=== PATIENT | female | born 1960 | race Two or more races ===

== ENCOUNTER 2024-07-26 19:23 | Inpatient (IN) | payer MEDICARE ==
[~2024-07-26] VITALS: Ht 160 cm; Wt 68.0 kg
[2024-07-26] MEDS ORDERED: ATOR20TA PO (19:34)
[2024-07-26] MEDS ORDERED: LEVO25TA9 PO (19:34)
[2024-07-26] MEDS ORDERED: ONDANSETRON 4 MG/2 ML VIAL ONE ×2 (19:48→22:23)
[2024-07-26] MEDS ORDERED: MORPHINE SULFATE 2 MG/1 ML DISP.SYRIN ONE (19:48)
[2024-07-26] MEDS: MORPHINE SULFATE 2 MG/1 ML DISP.SYRIN IV ONE (19:54)
[2024-07-26] MEDS: ONDANSETRON 4 MG/2 ML VIAL IV ONE ×2 (19:54→22:29)
[2024-07-26 19:55] LABS: BASOPHILS % (AUTO) 0.4 % (0.0-2.0); EOSINOPHILS # (AUTO) 0.2 K/uL (0.0-0.7); EOSINOPHILS % (AUTO) 1.4 % (0.0-7.0); HEMATOCRIT 39.3 % (31.2-41.9); HEMOGLOBIN 13.3 g/dL (10.9-14.3); LYMPHOCYTES # (AUTO) 6.3 K/uL (0.8-4.8); LYMPHOCYTES % (AUTO) 47.9 % (20.5-51.5); MEAN CORPUSCULAR HEMOGLOBIN 32.4 uug (24.7-32.8); MEAN CORPUSCULAR HGB CONC 34 g/dL (32.3-35.6); MEAN CORPUSCULAR VOLUME 95.3 fL (75.5-95.3); MONOCYTES # (AUTO) 0.7 K/uL (0.1-1.30); MONOCYTES % (AUTO) 5.4 % (0.0-11.0); NEUTROPHILS # (AUTO) 5.9 K/uL (1.8-8.9); NEUTROPHILS % (AUTO) 44.9 % (38.5-71.5); PLATELET COUNT (AUTO) 283 K/uL (179-408); RED BLOOD CELL COUNT(AUTO) 4.12 MIL/uL (3.63-4.92); RED CELL DISTRIBUTION WIDTH 12.8 % (12.3-17.7); WHITE BLOOD COUNT (AUTO) 13.2 K/uL (3.8-11.8)
[2024-07-26 19:56] LABS: DIFFERENTIAL COMMENT 1
[2024-07-26 20:03] LABS: CALCIUM 9.2 mg/dL (8.5-10.1); CREATININE 1.2 mg/dL (0.6-1.3); POTASSIUM 3.7 mmol/L (3.5-5.1)
[2024-07-26 20:08] LABS: ALBUMIN 4.1 g/dL (3.4-5.0); BILIRUBIN,TOTAL 0.5 mg/dL (0.2-1.0); TOTAL PROTEIN, SERUM 7.1 g/dL (6.4-8.2)
[2024-07-26] MEDS ORDERED: HYDROMORPHONE 1 MG/1 ML DISP.SYRIN ONE (22:23)
[2024-07-26] MEDS: HYDROMORPHONE 1 MG/1 ML DISP.SYRIN IV ONE (22:28)
[2024-07-27] MEDS ORDERED: REMEDY ESSENTIAL ZINC PASTE 113 GM TP PRN (00:15)
[2024-07-27 02:05] VITALS: BP 141/79; TEMP 98.3; O2SAT 93
[2024-07-27] MEDS: HYDROMORPHONE 1 MG/1 ML DISP.SYRIN IV PRN (02:13)
[2024-07-27] MEDS: IV NS 1000 ML 1,000 ML IV PRN (02:35)
[2024-07-27 05:30] VITALS: BP 128/70; TEMP 98.5; O2SAT 94
[2024-07-27 07:20] LABS: CALCIUM 8.4 mg/dL (8.5-10.1); PHOSPHOROUS 4.8 mg/dL (2.5-4.9); POTASSIUM 4.3 mmol/L (3.5-5.1)
[2024-07-27 07:22] LABS: BASOPHILS % (AUTO) 0.2 % (0.0-2.0); EOSINOPHILS % (AUTO) 0.3 % (0.0-7.0); HEMATOCRIT 36.4 % (31.2-41.9); HEMOGLOBIN 12.8 g/dL (10.9-14.3); LYMPHOCYTES % (AUTO) 28.2 % (20.5-51.5); MEAN CORPUSCULAR HEMOGLOBIN 33.5 uug (24.7-32.8); MEAN CORPUSCULAR HGB CONC 35 g/dL (32.3-35.6); MEAN CORPUSCULAR VOLUME 95.1 fL (75.5-95.3); MONOCYTES # (AUTO) 0.8 K/uL (0.1-1.30); MONOCYTES % (AUTO) 7.1 % (0.0-11.0); NEUTROPHILS # (AUTO) 6.8 K/uL (1.8-8.9); NEUTROPHILS % (AUTO) 64.2 % (38.5-71.5); PLATELET COUNT (AUTO) 241 K/uL (179-408); RED BLOOD CELL COUNT(AUTO) 3.83 MIL/uL (3.63-4.92); RED CELL DISTRIBUTION WIDTH 12.9 % (12.3-17.7); WHITE BLOOD COUNT (AUTO) 10.6 K/uL (3.8-11.8)
[2024-07-27] MEDS: PANTOPRAZOLE SODIUM 40 MG VIAL IV SCH (08:05)
[2024-07-27] MEDS ORDERED: LEVO75TA7 PO (10:48)
[2024-07-27 11:07] VITALS: BP 114/64; TEMP 98.4; O2SAT 97
[2024-07-27 15:07] VITALS: BP 105/67; TEMP 97.8; O2SAT 94
[2024-07-27] MEDS: ONDANSETRON 4 MG/2 ML VIAL IV PRN (18:27)
[2024-07-27 18:43] LABS: *BILIRUBIN,URIN NEGATIVE (NEGATIVE); *BLOOD, URINE 2+ (NEGATIVE); *CLARITY,URINE CLEAR (CLEAR); *COLOR,URINE YELLOW (YELLOW); *KETONES,URINE 1+ (NEGATIVE); *PROTEIN,URINE TRACE (NEGATIVE); *UROBILINOGEN,URINE 0.2 E.U./dl (NORMAL); LEUKOCYTE ESTERASE ,URINE NEGATIVE (NEGATIVE); NITRITE, URINE NEGATIVE (NEGATIVE); PH,URINE 5.5 (5.0-8.0); UGLUCOSE NEGATIVE (NEGATIVE)
[2024-07-27 18:51] LABS: BACTERIA,URINE FEW /HPF (NONE SEEN); SQUAMOUS EPITHELIAL CELL,UR MODERATE /HPF (NONE SEEN); WBC,URINE 0-3 /HPF (0-3)
[2024-07-27 19:00] VITALS: BP 127/68; TEMP 98.9; O2SAT 95
[2024-07-28 06:37] VITALS: BP 123/65; TEMP 99.1; O2SAT 92
[2024-07-28 06:58] LABS: CALCIUM 8.2 mg/dL (8.5-10.1); CREATININE 0.9 mg/dL (0.6-1.3); MAGNESIUM 1.9 mg/dL (1.8-2.4); PHOSPHOROUS 2.4 mg/dL (2.5-4.9); POTASSIUM 3.9 mmol/L (3.5-5.1)
[2024-07-28 06:59] LABS: BASOPHILS % (AUTO) 0.1 % (0.0-2.0); EOSINOPHILS % (AUTO) 0.2 % (0.0-7.0); HEMATOCRIT 32.7 % (31.2-41.9); HEMOGLOBIN 11.5 g/dL (10.9-14.3); LYMPHOCYTES % (AUTO) 17.8 % (20.5-51.5); MEAN CORPUSCULAR HEMOGLOBIN 33.5 uug (24.7-32.8); MEAN CORPUSCULAR HGB CONC 35 g/dL (32.3-35.6); MEAN CORPUSCULAR VOLUME 95.6 fL (75.5-95.3); MONOCYTES # (AUTO) 0.9 K/uL (0.1-1.30); MONOCYTES % (AUTO) 8.1 % (0.0-11.0); NEUTROPHILS # (AUTO) 8.3 K/uL (1.8-8.9); NEUTROPHILS % (AUTO) 73.8 % (38.5-71.5); PLATELET COUNT (AUTO) 189 K/uL (179-408); RED BLOOD CELL COUNT(AUTO) 3.42 MIL/uL (3.63-4.92); RED CELL DISTRIBUTION WIDTH 13.1 % (12.3-17.7); WHITE BLOOD COUNT (AUTO) 11.3 K/uL (3.8-11.8)
[2024-07-28] MEDS ORDERED: VANCOMYCIN 1000 MG VIAL ONE (07:01)
[2024-07-28] MEDS ORDERED: ROPIVACAINE HCL/PF 0.5% ( 5 MG/ML ) , 20 ML VIAL ONE (07:33)
[2024-07-28] MEDS ORDERED: LIDOCAINE 2% (GLYDO= UROJET) 10 ML JELLY MM ONE (07:33)
[2024-07-28] MEDS ORDERED: MIDAZOLAM HCL 2 MG/2 ML VIAL ONE (07:33)
[2024-07-28] MEDS ORDERED: FENTANYL CITRATE 100 MCG/2 ML AMPUL ONE (07:33)
[2024-07-28] MEDS ORDERED: MAGNESIUM SULFATE/D5W 100 ML ONE (07:33)
[2024-07-28] MEDS ORDERED: ROCURONIUM BROMIDE 50 MG/5 ML VIAL ONE (07:34)
[2024-07-28] MEDS ORDERED: KETAMINE HCL 500 MG/5 ML VIAL ONE (07:34)
[2024-07-28] MEDS ORDERED: TRANEXAMIC ACID 1,000 MG/10 ML VIAL ONE (07:34)
[2024-07-28] MEDS ORDERED: FAMOTIDINE. 20 MG/2 ML VIAL IV ONE (07:34)
[2024-07-28] MEDS ORDERED: SCOPOLAMINE PATCH 1 MG/72 HRS PATCH TD ONE (07:45)
[2024-07-28] MEDS ORDERED: HYDROMORPHONE 1 MG/1 ML DISP.SYRIN IV PRN (09:15)
[2024-07-28] MEDS ORDERED: MEPERIDINE 25 MG/1 ML DISP.SYRIN IV PRN (09:15)
[2024-07-28] MEDS ORDERED: ONDANSETRON 4 MG/2 ML VIAL IV PRN (09:15)
[2024-07-28] MEDS ORDERED: FLUMAZENIL 0.5 MG/5 ML VIAL ONE (10:43)
[2024-07-28 11:42] VITALS: BP 122/75; TEMP 98.3; O2SAT 97
[2024-07-28] MEDS: MORPHINE SULFATE 4 MG/1 ML DISP.SYRIN IV PRN (11:58)
[2024-07-28 12:07] VITALS: BP 131/83; TEMP 99; O2SAT 96
[2024-07-28 12:37] VITALS: BP 115/65; TEMP 98.3; O2SAT 96
[2024-07-28] MEDS ORDERED: ESCI20TA PO (13:26)
[2024-07-28] MEDS ORDERED: ATOR40TA PO (13:27)
[2024-07-28 15:44] VITALS: BP 106/60; TEMP 98.1; O2SAT 95
[2024-07-28] MEDS: NEUTRA PHOS PACKET PO ONE (16:26)
[2024-07-28] MEDS: CEFAZOLIN 1 G in IV DEXTROSE 5% 50 ML IV SCH (16:27)
[2024-07-28] MEDS: IV D5W-0.45% NS +20 KCL 1,000 ML IV PRN (16:28)
[2024-07-28 19:40] VITALS: BP 125/63; TEMP 99.5; O2SAT 96
[2024-07-28] MEDS: HYDROCODONE/APAP 5-325MG TABLET PO PRN (20:05)
[2024-07-29 05:56] VITALS: BP 119/64; TEMP 99.1; O2SAT 98
[2024-07-29 06:51] LABS: BASOPHILS % (AUTO) 0.2 % (0.0-2.0); EOSINOPHILS % (AUTO) 0.4 % (0.0-7.0); HEMOGLOBIN 10.6 g/dL (10.9-14.3); LYMPHOCYTES # (AUTO) 2.8 K/uL (0.8-4.8); LYMPHOCYTES % (AUTO) 26.9 % (20.5-51.5); MEAN CORPUSCULAR HEMOGLOBIN 33.8 uug (24.7-32.8); MEAN CORPUSCULAR HGB CONC 35 g/dL (32.3-35.6); MEAN CORPUSCULAR VOLUME 95.6 fL (75.5-95.3); MONOCYTES # (AUTO) 1.1 K/uL (0.1-1.30); MONOCYTES % (AUTO) 10.3 % (0.0-11.0); NEUTROPHILS # (AUTO) 6.6 K/uL (1.8-8.9); NEUTROPHILS % (AUTO) 62.2 % (38.5-71.5); PLATELET COUNT (AUTO) 167 K/uL (179-408); RED BLOOD CELL COUNT(AUTO) 3.14 MIL/uL (3.63-4.92); RED CELL DISTRIBUTION WIDTH 12.9 % (12.3-17.7); WHITE BLOOD COUNT (AUTO) 10.5 K/uL (3.8-11.8)
[2024-07-29 07:04] LABS: CALCIUM 7.4 mg/dL (8.5-10.1); CREATININE 0.8 mg/dL (0.6-1.3); PHOSPHOROUS 2.2 mg/dL (2.5-4.9); POTASSIUM 3.9 mmol/L (3.5-5.1)
[2024-07-29 07:07] LABS: DIFFERENTIAL COMMENT 1
[2024-07-29 11:33] VITALS: BP 118/71; TEMP 98.6; O2SAT 97
[2024-07-29] MEDS: ESCITALOPRAM OXALATE 10 MG TABLET PO SCH (12:01)
[2024-07-29] MEDS: ATORVASTATIN 40 MG TABLET PO SCH (12:01)
[2024-07-29] MEDS: NEUTRA PHOS PACKET PO ONE (15:03)
[2024-07-29 15:50] VITALS: O2SAT 95
[2024-07-29 15:59] VITALS: BP 113/63; TEMP 98.7; O2SAT 95
[2024-07-29] MEDS ORDERED: DOCU100T2 PO (18:07)
[2024-07-29] MEDS ORDERED: PANT40TA49 PO (18:08)
[2024-07-29] MEDS ORDERED: HYDR-4209 PO (18:08)
[2024-07-29] MEDS ORDERED: PETR113P TP (18:09)
[2024-07-29] MEDS ORDERED: DOCUSATE SODIUM 100 MG CAPSULE PO SCH (21:00)
[2024-07-30] MEDS ORDERED: PANTOPRAZOLE SODIUM 40 MG TABLET.DR PO SCH (07:00)
[2024-07-30] MEDS ORDERED: LEVOTHYROXINE SODIUM 75 MCG TABLET PO SCH (07:00)
== END 2024-07-29 17:11 | DRG 482 ==
LOC: ER 19:26 → MEDSURG3 07-27 00:46
PROVIDERS: ADMIT Nurse Practitioner Family
PROC: 0QSB04Z Reposition Right Lower Femur with Internal Fixation Device, Open Approach (ICD-10-PCS; principal; 2024-07-28 07:30)
DX: S72.491A Other fracture of lower end of right femur, initial encounter for closed fracture (principal); W01.0XXA Fall on same level from slipping, tripping and stumbling without subsequent striking against object, initial encounter; Y92.007 Garden or yard of unspecified non-institutional (private) residence as the place of occurrence of the external cause; E78.5 Hyperlipidemia, unspecified; E03.9 Hypothyroidism, unspecified; Z79.890 Hormone replacement therapy; Z79.899 Other long term (current) drug therapy; Z90.49 Acquired absence of other specified parts of digestive tract; Z88.0 Allergy status to penicillin
CPT/HCPCS: 36415; 71045; 73551; 73562; 83735; 84100; 85025; 85730; 87086; 93307; G0378; J0690; J1171; J1308; J2250; J2270; J2405; J2470; J2795; J3010; J3370; J3475; J3490; J7040

== ENCOUNTER 2024-08-06 20:30 | Emergency (ER) | payer MEDICARE ==
[~2024-08-06] VITALS: Ht 160 cm; Wt 68.0 kg
[~2024-08-06 20:30] MED LIST: ATOR40TA PO; DOCU100T2 PO; ESCI20TA PO; HYDR-4209 PO; LEVO75TA7 PO; PANT40TA49 PO; PETR113P TP
[2024-08-06 21:42] VITALS: BP 140/90; O2SAT 98
[2024-08-07] MEDS ORDERED: ZOLPIDEM 5 MG TABLET PO PRN (18:45)
[2024-08-07] MEDS ORDERED: ENOXAPARIN SODIUM 40 MG/0.4 ML DISP.SYRIN SQ SCH (18:45)
[2024-08-07] MEDS ORDERED: REMEDY ESSENTIAL ZINC PASTE 113 GM TP PRN (18:45)
[2024-08-07] MEDS ORDERED: ONDANSETRON 4 MG/2 ML VIAL IV PRN (18:45)
[2024-08-07] MEDS ORDERED: ACETAMINOPHEN 325 MG TABLET PO PRN (18:45)
[2024-08-07] MEDS ORDERED: HYDROCODONE/APAP 5-325MG TABLET PO PRN (18:45)
[2024-08-07] MEDS ORDERED: MORPHINE SULFATE 2 MG/1 ML DISP.SYRIN IV PRN (18:45)
[2024-08-08 06:58] LABS: BASOPHILS # (AUTO) 0.1 K/UL (0.0-0.2); BASOPHILS % (AUTO) 0.5 % (0.0-2.0); EOSINOPHILS # (AUTO) 0.2 K/uL (0.0-0.7); HEMATOCRIT 29.8 % (31.2-41.9); HEMOGLOBIN 10.3 g/dL (10.9-14.3); LYMPHOCYTES # (AUTO) 3.1 K/uL (0.8-4.8); LYMPHOCYTES % (AUTO) 28.6 % (20.5-51.5); MEAN CORPUSCULAR HEMOGLOBIN 32.6 uug (24.7-32.8); MEAN CORPUSCULAR HGB CONC 34 g/dL (32.3-35.6); MEAN CORPUSCULAR VOLUME 94.7 fL (75.5-95.3); MONOCYTES # (AUTO) 0.8 K/uL (0.1-1.30); NEUTROPHILS # (AUTO) 6.8 K/uL (1.8-8.9); NEUTROPHILS % (AUTO) 61.9 % (38.5-71.5); PLATELET COUNT (AUTO) 541 K/uL (179-408); RED BLOOD CELL COUNT(AUTO) 3.15 MIL/uL (3.63-4.92)
[2024-08-08] MEDS ORDERED: PANTOPRAZOLE SODIUM 40 MG TABLET.DR PO SCH (07:00)
[2024-08-08 07:02] LABS: CALCIUM 8.9 mg/dL (8.5-10.1); MAGNESIUM 2.1 mg/dL (1.8-2.4)
[2024-08-08 07:03] LABS: DIFFERENTIAL COMMENT 1
== END 2024-08-06 21:35 ==
LOC: ER 20:33 → MEDSURG3 08-07 17:14 → UNDOADMIN 08-07 17:14
DX: S52.531A Colles' fracture of right radius, initial encounter for closed fracture (principal); E78.5 Hyperlipidemia, unspecified; E03.9 Hypothyroidism, unspecified; Z79.899 Other long term (current) drug therapy; Z98.890 Other specified postprocedural states; Z88.0 Allergy status to penicillin; W18.39XA Other fall on same level, initial encounter; Y93.89 Activity, other specified; Y92.89 Other specified places as the place of occurrence of the external cause; Y99.8 Other external cause status
CPT/HCPCS: 36415; 83735; 84100; 85025

== ENCOUNTER 2024-08-07 18:57 | Inpatient (IN) | payer MEDICARE ==
[~2024-08-07] VITALS: Ht 157.5 cm; Wt 65.8 kg
[2024-08-07 19:00] VITALS: BP 136/78; TEMP 98.9; O2SAT 95
[2024-08-07] MEDS ORDERED: REMEDY ESSENTIAL ZINC PASTE 113 GM TP PRN (19:15)
[2024-08-07] MEDS ORDERED: TRAMADOL HCL 50 MG TABLET PO PRN (19:15)
[2024-08-07] MEDS ORDERED: MAGNESIUM HYDROXIDE 30 ML LIQUID UDC PO PRN (19:15)
[2024-08-07] MEDS ORDERED: MORPHINE SULFATE 2 MG/1 ML DISP.SYRIN IV PRN (19:15)
[2024-08-08 04:00] VITALS: BP 118/66; TEMP 98.5; O2SAT 94
[2024-08-08 08:02] VITALS: BP 126/66; TEMP 98.7; O2SAT 95
[2024-08-08] MEDS ORDERED: VANCOMYCIN 1000 MG VIAL ONE (08:11)
[2024-08-08] MEDS: PANTOPRAZOLE SODIUM 40 MG VIAL IV SCH (08:30)
[2024-08-08] MEDS ORDERED: ROCURONIUM BROMIDE 50 MG/5 ML VIAL ONE (08:52)
[2024-08-08] MEDS ORDERED: FENTANYL CITRATE 250 MCG/5 ML AMPUL ONE (08:53)
[2024-08-08] MEDS ORDERED: ENOX40DI SQ (09:14)
[2024-08-08] MEDS ORDERED: TRIA15CR4 TP (09:14)
[2024-08-08] MEDS ORDERED: NITR100C6 PO (09:14)
[2024-08-08] MEDS ORDERED: HYDR4TAB4 PO (09:14)
[2024-08-08] MEDS ORDERED: NALO0.4D4 IV (09:16)
[2024-08-08] MEDS ORDERED: ROPIVACAINE HCL/PF 0.5% ( 5 MG/ML ) , 20 ML VIAL ONE (09:16)
[2024-08-08] MEDS ORDERED: MEPERIDINE 25 MG/1 ML DISP.SYRIN IV PRN (11:15)
[2024-08-08] MEDS ORDERED: ONDANSETRON 4 MG/2 ML VIAL IV PRN (11:15)
[2024-08-08] MEDS ORDERED: FENTANYL CITRATE 100 MCG/2 ML AMPUL IV PRN (11:15)
[2024-08-08] MEDS ORDERED: POTASSIUM CHLORIDE 20 MEQ in IV D5 1/2 NS 1000 ML 1,000 ML IV PRN (12:30)
[2024-08-08] MEDS ORDERED: HYDROCODONE/APAP 10-325 MG TABLET PO PRN ×2 (13:15→13:45)
[2024-08-08 14:13] VITALS: BP 125/57; TEMP 98.4; O2SAT 95
[2024-08-08 15:06] VITALS: BP 126/72; TEMP 98.4; O2SAT 95
[2024-08-08] MEDS: IV D5W-0.45% NS +20 KCL 1,000 ML IV PRN (15:07)
[2024-08-08] MEDS ORDERED: HOME MED MISCELLANEOUS XX SCH ×2 (16:15)
[2024-08-08] MEDS ORDERED: NALOXONE HCL 0.4 MG/ML AMPUL IV PRN (16:30)
[2024-08-08] MEDS: NITROFURANTOIN/NITROFURAN MAC 100 MG CAPSULE PO SCH (17:22)
[2024-08-08] MEDS: CEFAZOLIN 1 G in IV DEXTROSE 5% 50 ML IV SCH (17:22)
[2024-08-08] MEDS: MORPHINE SULFATE 2 MG/1 ML DISP.SYRIN IV PRN (17:33)
[2024-08-08] MEDS: ONDANSETRON 4 MG/2 ML VIAL IV PRN (17:38)
[2024-08-08 19:20] VITALS: BP 130/77; TEMP 98.3; O2SAT 100
[2024-08-08] MEDS: DOCUSATE SODIUM 100 MG CAPSULE PO SCH (21:08)
[2024-08-08] MEDS: ATORVASTATIN 40 MG TABLET PO SCH (21:08)
[2024-08-09 05:52] VITALS: BP_SYST 156; BP_SYST 164; BP_DIAS 74; BP_DIAS 78; TEMP 98.3; O2SAT 95
[2024-08-09] MEDS: LEVOTHYROXINE SODIUM 75 MCG TABLET PO SCH (06:12)
[2024-08-09] MEDS: PANTOPRAZOLE SODIUM 40 MG TABLET.DR PO SCH (06:12)
[2024-08-09 06:42] LABS: BASOPHILS % (AUTO) 0.2 % (0.0-2.0); EOSINOPHILS # (AUTO) 0.1 K/uL (0.0-0.7); EOSINOPHILS % (AUTO) 0.5 % (0.0-7.0); HEMATOCRIT 28.3 % (31.2-41.9); HEMOGLOBIN 9.8 g/dL (10.9-14.3); LYMPHOCYTES # (AUTO) 4.4 K/uL (0.8-4.8); LYMPHOCYTES % (AUTO) 27.1 % (20.5-51.5); MEAN CORPUSCULAR HEMOGLOBIN 32.7 uug (24.7-32.8); MEAN CORPUSCULAR HGB CONC 35 g/dL (32.3-35.6); MEAN CORPUSCULAR VOLUME 94.2 fL (75.5-95.3); MONOCYTES # (AUTO) 1.2 K/uL (0.1-1.30); MONOCYTES % (AUTO) 7.2 % (0.0-11.0); NEUTROPHILS # (AUTO) 10.5 K/uL (1.8-8.9); PLATELET COUNT (AUTO) 567 K/uL (179-408); RED CELL DISTRIBUTION WIDTH 13.2 % (12.3-17.7); WHITE BLOOD COUNT (AUTO) 16.1 K/uL (3.8-11.8)
[2024-08-09 06:45] LABS: CALCIUM 8.3 mg/dL (8.5-10.1); CREATININE 0.9 mg/dL (0.6-1.3); POTASSIUM 3.8 mmol/L (3.5-5.1)
[2024-08-09 06:48] LABS: DIFFERENTIAL COMMENT 1
[2024-08-09] MEDS: ESCITALOPRAM OXALATE 10 MG TABLET PO SCH (09:40)
[2024-08-09] MEDS: ENOXAPARIN SODIUM 40 MG/0.4 ML DISP.SYRIN SQ SCH (09:42)
[2024-08-09] MEDS: TRIAMCINOLONE ACET 0.1% CREAM 15 GM TUBE TP SCH (09:43)
[2024-08-09 11:39] VITALS: BP 148/81; TEMP 97.9; O2SAT 95
[2024-08-09] MEDS: ACETAMINOPHEN 325 MG TABLET PO PRN (12:55)
[2024-08-09 14:44] LABS: *BILIRUBIN,URIN NEGATIVE (NEGATIVE); *CLARITY,URINE CLEAR (CLEAR); *COLOR,URINE YELLOW (YELLOW); *KETONES,URINE NEGATIVE (NEGATIVE); *PROTEIN,URINE NEGATIVE (NEGATIVE); *UROBILINOGEN,URINE 0.2 E.U./dl (NORMAL); LEUKOCYTE ESTERASE ,URINE NEGATIVE (NEGATIVE); NITRITE, URINE NEGATIVE (NEGATIVE); UGLUCOSE NEGATIVE (NEGATIVE)
[2024-08-09 14:49] LABS: *BLOOD, URINE TRACE (NEGATIVE)
[2024-08-09 15:07] LABS: RBC,URINE 0-3 /HPF (0-3); WBC,URINE 0-3 /HPF (0-3)
[2024-08-09 15:20] VITALS: BP 141/72; TEMP 97.8; O2SAT 95
[2024-08-09 19:46] VITALS: BP 162/78; TEMP 98.9; O2SAT 96
[2024-08-10 03:49] VITALS: BP 148/81; TEMP 98.6; O2SAT 94
[2024-08-10 07:32] LABS: BASOPHILS # (AUTO) 0.1 K/UL (0.0-0.2); BASOPHILS % (AUTO) 0.7 % (0.0-2.0); EOSINOPHILS # (AUTO) 0.2 K/uL (0.0-0.7); EOSINOPHILS % (AUTO) 1.1 % (0.0-7.0); HEMATOCRIT 30.3 % (31.2-41.9); HEMOGLOBIN 10.5 g/dL (10.9-14.3); LYMPHOCYTES # (AUTO) 2.8 K/uL (0.8-4.8); MEAN CORPUSCULAR HEMOGLOBIN 32.2 uug (24.7-32.8); MEAN CORPUSCULAR HGB CONC 35 g/dL (32.3-35.6); MEAN CORPUSCULAR VOLUME 93.3 fL (75.5-95.3); MONOCYTES # (AUTO) 0.8 K/uL (0.1-1.30); MONOCYTES % (AUTO) 5.8 % (0.0-11.0); NEUTROPHILS # (AUTO) 10.2 K/uL (1.8-8.9); NEUTROPHILS % (AUTO) 72.4 % (38.5-71.5); PLATELET COUNT (AUTO) 586 K/uL (179-408); RED BLOOD CELL COUNT(AUTO) 3.25 MIL/uL (3.63-4.92)
[2024-08-10 07:33] LABS: DIFFERENTIAL COMMENT 1
[2024-08-10 08:03] LABS: THYROID STIMULATING HORMONE 4.309 mIU/mL (0.358-3.740)
[2024-08-10 08:22] LABS: ALBUMIN 2.8 g/dL (3.4-5.0); BILIRUBIN,TOTAL 0.5 mg/dL (0.2-1.0); CALCIUM 8.9 mg/dL (8.5-10.1); CREATININE 0.8 mg/dL (0.6-1.3); PHOSPHOROUS 3.4 mg/dL (2.5-4.9); TOTAL PROTEIN, SERUM 6.4 g/dL (6.4-8.2)
[2024-08-10] MEDS ORDERED: ACET-2154 PO (10:09)
[2024-08-10] MEDS ORDERED: ONDA4VIA52 IV (10:09)
[2024-08-10] MEDS ORDERED: MORP1VIA3 IV (10:09)
[2024-08-10] MEDS ORDERED: CYAN10006 IM (10:13)
[2024-08-10] MEDS ORDERED: FERR324T17 PO (10:13)
[2024-08-10] MEDS ORDERED: ATOR10TA PO (10:13)
[2024-08-10 10:23] VITALS: BP 117/72; TEMP 98.4; O2SAT 97
[2024-08-10] MEDS: CYANOCOBALAMIN 1000 MCG/ML VIAL IM SCH (11:39)
[2024-08-10] MEDS: FERROUS GLUCONATE 324 MG TABLET PO SCH (11:39)
[2024-08-10] MEDS: BISMUTH SUBSALICYLATE 262 MG/15 ML UDC PO PRN (12:49)
[2024-08-10 15:43] VITALS: BP 136/75; TEMP 99; O2SAT 96
[2024-08-10] MEDS ORDERED: ACID1TAB4 PO (18:09)
[2024-08-10] MEDS ORDERED: ATORVASTATIN 10 MG TABLET PO SCH (21:00)
== END 2024-08-10 18:35 | DRG 511 ==
LOC: MEDSURG3 18:57
PROVIDERS: ADMIT Nurse Practitioner Acute Care; ATTEND Nurse Practitioner Acute Care
PROC: 0PSH04Z Reposition Right Radius with Internal Fixation Device, Open Approach (ICD-10-PCS; principal; 2024-08-08 09:00)
DX: S52.571A Other intraarticular fracture of lower end of right radius, initial encounter for closed fracture (principal); N39.0 Urinary tract infection, site not specified; B96.20 Unspecified Escherichia coli [E. coli] as the cause of diseases classified elsewhere; W01.0XXA Fall on same level from slipping, tripping and stumbling without subsequent striking against object, initial encounter; Y93.E8 Activity, other personal hygiene; Y92.231 Patient bathroom in hospital as the place of occurrence of the external cause; E03.9 Hypothyroidism, unspecified; E78.5 Hyperlipidemia, unspecified; Z88.5 Allergy status to narcotic agent; Z88.0 Allergy status to penicillin; D50.9 Iron deficiency anemia, unspecified; F32.A Depression, unspecified; S72.401D Unspecified fracture of lower end of right femur, subsequent encounter for closed fracture with routine healing; W01.0XXD Fall on same level from slipping, tripping and stumbling without subsequent striking against object, subsequent encounter; Z79.890 Hormone replacement therapy; Z79.899 Other long term (current) drug therapy
CPT/HCPCS: 36415; 73110; 83550; 83735; 84100; 84443; 85025; 85730; 87086; G0378; J0690; J1650; J2270; J2405; J2470; J2795; J3010; J3370; J3420; J3490

== ENCOUNTER 2024-08-10 09:27 | Inpatient (IN) | payer MEDICARE ==
[~2024-08-10] VITALS: Ht 157.5 cm; Wt 65.8 kg
[~2024-08-10 09:27] MED LIST changes: +ENOX40DI SQ; -HYDR-4209 PO; +HYDR4TAB4 PO; +NALO0.4D4 IV; +NITR100C6 PO; +TRIA15CR4 TP
[2024-08-10] MEDS ORDERED: ACET-2154 PO (10:09)
[2024-08-10] MEDS ORDERED: ONDA4VIA52 IV (10:09)
[2024-08-10] MEDS ORDERED: MORP1VIA3 IV (10:09)
[2024-08-10] MEDS ORDERED: FERR324T17 PO (10:13)
[2024-08-10] MEDS ORDERED: CYAN10006 IM (10:13)
[2024-08-10] MEDS ORDERED: ATOR10TA PO (10:13)
[2024-08-10 11:01] VITALS: BP 117/72; TEMP 98.4
[2024-08-10 11:26] VITALS: BP 117/72; TEMP 98.4
[2024-08-10] MEDS ORDERED: ACID1TAB4 PO (18:09)
[2024-08-10 19:00] VITALS: BP 134/76; TEMP 98.3; O2SAT 97
[2024-08-10] MEDS ORDERED: ACETAMINOPHEN 325 MG TABLET-SA PATIENTS-PAIN ONLY PO PRN (19:15)
[2024-08-10] MEDS ORDERED: MORPHINE SULFATE IR 30 MG TABLET PO PRN (19:30)
[2024-08-10] MEDS ORDERED: HYDROCODONE/APAP 10-325 MG TABLET PO PRN (19:30)
[2024-08-10] MEDS: ATORVASTATIN 10 MG TABLET PO SCH (20:47)
[2024-08-10] MEDS: ACIDOPHILUS/BULGARICUS CHEW TAB PO SCH (20:47)
[2024-08-11 05:31] VITALS: BP 123/79; TEMP 98.2; O2SAT 98
[2024-08-11] MEDS: LEVOTHYROXINE SODIUM 75 MCG TABLET PO SCH (06:37)
[2024-08-11] MEDS: ACETAMINOPHEN 325 MG TABLET PO PRN (06:37)
[2024-08-11] MEDS: PANTOPRAZOLE SODIUM 40 MG TABLET.DR PO SCH (06:38)
[2024-08-11 08:00] VITALS: BP 116/75; TEMP 98.5; O2SAT 95
[2024-08-11] MEDS: CYANOCOBALAMIN 1000 MCG/ML VIAL IM SCH (08:59)
[2024-08-11] MEDS: FERROUS GLUCONATE 324 MG TABLET PO SCH (09:00)
[2024-08-11] MEDS: ESCITALOPRAM OXALATE 10 MG TABLET PO SCH (09:00)
[2024-08-11] MEDS: TRIAMCINOLONE ACET 0.1% CREAM 15 GM TUBE TP SCH (09:01)
[2024-08-11] MEDS: ENOXAPARIN SODIUM 40 MG/0.4 ML DISP.SYRIN SQ SCH (09:01)
[2024-08-11 16:00] VITALS: BP 116/67; TEMP 98; O2SAT 96
[2024-08-11 20:00] VITALS: BP 116/48; TEMP 98.7; O2SAT 97
[2024-08-12 06:36] VITALS: BP 113/65; TEMP 98.1; O2SAT 97
[2024-08-12 07:43] VITALS: BP 112/64; TEMP 98.1; O2SAT 97
[2024-08-12 08:13] LABS: BASOPHILS # (AUTO) 0.1 K/UL (0.0-0.2); BASOPHILS % (AUTO) 0.7 % (0.0-2.0); EOSINOPHILS # (AUTO) 0.2 K/uL (0.0-0.7); EOSINOPHILS % (AUTO) 1.7 % (0.0-7.0); HEMATOCRIT 31.1 % (31.2-41.9); HEMOGLOBIN 10.9 g/dL (10.9-14.3); LYMPHOCYTES # (AUTO) 2.7 K/uL (0.8-4.8); LYMPHOCYTES % (AUTO) 27.7 % (20.5-51.5); MEAN CORPUSCULAR HEMOGLOBIN 32.3 uug (24.7-32.8); MEAN CORPUSCULAR HGB CONC 35 g/dL (32.3-35.6); MEAN CORPUSCULAR VOLUME 92.5 fL (75.5-95.3); MONOCYTES # (AUTO) 0.6 K/uL (0.1-1.30); MONOCYTES % (AUTO) 6.1 % (0.0-11.0); NEUTROPHILS # (AUTO) 6.2 K/uL (1.8-8.9); NEUTROPHILS % (AUTO) 63.8 % (38.5-71.5); PLATELET COUNT (AUTO) 615 K/uL (179-408); RED BLOOD CELL COUNT(AUTO) 3.37 MIL/uL (3.63-4.92); RED CELL DISTRIBUTION WIDTH 12.9 % (12.3-17.7); WHITE BLOOD COUNT (AUTO) 9.7 K/uL (3.8-11.8)
[2024-08-12 08:22] LABS: DIFFERENTIAL COMMENT 1
[2024-08-12 08:31] LABS: ALBUMIN 2.8 g/dL (3.4-5.0); BILIRUBIN,TOTAL 0.4 mg/dL (0.2-1.0); CALCIUM 9.1 mg/dL (8.5-10.1); CREATININE 0.9 mg/dL (0.6-1.3); MAGNESIUM 2.1 mg/dL (1.8-2.4); PHOSPHOROUS 3.7 mg/dL (2.5-4.9); POTASSIUM 3.8 mmol/L (3.5-5.1); TOTAL PROTEIN, SERUM 6.5 g/dL (6.4-8.2)
[2024-08-12] MEDS: ASCORBIC ACID 500 MG TABLET PO SCH (08:38)
[2024-08-12 16:01] VITALS: BP 101/55; TEMP 97.8; O2SAT 100
[2024-08-12 20:00] VITALS: BP 115/67; TEMP 98.8; O2SAT 95
[2024-08-13 06:32] VITALS: BP 114/63; TEMP 97.9; O2SAT 97
[2024-08-13 08:00] VITALS: BP 116/67; TEMP 97.8; O2SAT 98
[2024-08-13 20:10] VITALS: BP 104/54; TEMP 98.9; O2SAT 96
[2024-08-14 06:00] VITALS: BP 102/65; TEMP 98.1; O2SAT 97
[2024-08-14 10:03] VITALS: BP 102/65; TEMP 98.6; O2SAT 96
[2024-08-14 18:44] VITALS: BP 116/68; TEMP 98.6; O2SAT 95
[2024-08-14 20:42] VITALS: BP 109/63; TEMP 98.6
[2024-08-15 06:39] VITALS: BP 123/76; TEMP 98.3
[2024-08-15 18:52] VITALS: BP 110/63; TEMP 98.3; O2SAT 97
[2024-08-15 20:00] VITALS: BP 110/66; TEMP 97.7; O2SAT 98
[2024-08-16 06:41] VITALS: TEMP 98.3
[2024-08-16] MEDS: LOPERAMIDE HCL 2 MG CAPSULE PO ONE (14:29)
== END 2024-08-16 17:00 | disposition home health service (06) | DRG 560 ==
LOC: UNDOADMIN 09:27
PROVIDERS: ADMIT Physical Medicine & Rehabilitation Pain Medicine; ATTEND Physical Medicine & Rehabilitation Pain Medicine
DX: S52.571D Other intraarticular fracture of lower end of right radius, subsequent encounter for closed fracture with routine healing (principal); D68.59 Other primary thrombophilia; E44.0 Moderate protein-calorie malnutrition; N39.0 Urinary tract infection, site not specified; S72.401D Unspecified fracture of lower end of right femur, subsequent encounter for closed fracture with routine healing; W01.0XXD Fall on same level from slipping, tripping and stumbling without subsequent striking against object, subsequent encounter; E03.9 Hypothyroidism, unspecified; Z88.0 Allergy status to penicillin; E78.5 Hyperlipidemia, unspecified; D72.829 Elevated white blood cell count, unspecified; B96.20 Unspecified Escherichia coli [E. coli] as the cause of diseases classified elsewhere; Z88.5 Allergy status to narcotic agent; F32.A Depression, unspecified; D50.9 Iron deficiency anemia, unspecified
CPT/HCPCS: 36415; 73551; 83735; 84100; 85025; 97535-GO-CO; A4663; J1650; J3420